=== PATIENT | male | born 1960 | race Asian ===

== ENCOUNTER 2019-02-26 10:39 | Emergency (ER) | payer SELFPAY ==
[~2019-02-26] VITALS: Ht 165.1 cm; Wt 65.8 kg
[2019-02-26 11:00] VITALS: Ht 165.1 cm; Wt 65.8 kg
[2019-02-26 11:31] LABS: CALCIUM 7.9 mg/dL (8.5-10.1); CARBON DIOXIDE 27.4 mmol/L (21-32); CHLORIDE SERUM 106 mmol/L (98-107); CREATININE SERUM 0.9 mg/dL (0.7-1.3); GFR1 > 60 mL/min; GLUCOSE SERUM 128 mg/dL (74-106); POTASSIUM SERUM 4.4 mmol/L (3.5-5.1); SODIUM SERUM 138 mmol/L (136-145)
[2019-02-26 11:37] LABS: ALBUMIN 2.6 g/dL (3.4-5.0); ALKALINE PHOSPHATASE 44 U/L (46-116); ALT/SGPT 35 U/L (16-63); AST/SGOT 19 U/L (15-37); BASOPHIL % 0.2 % (0-2); BILIRUBIN TOTAL 0.4 mg/dL (0.20-1.00); PLATELET COUNT 175 x10^3mcL (130-400); RED CELL DISTRIBUTION WIDTH 14.4 % (11.5-14.5); TOTAL PROTEIN, SERUM 6.1 g/dL (6.4-8.2)
[2019-02-26 12:42] LABS: microscopic required? NO
[2019-02-26 13:10] LABS: urine erythrocyte NEGATIVE (NEGATIVE)
[2019-02-26 13:29] LABS: AMPHETAMINE QUAL UR NONE DETECTED (See below)
[2019-02-26 14:13] VITALS: BP 137/86
== END 2019-02-26 14:13 | disposition home or self-care (01) ==
LOC: ED 10:39
PROVIDERS: Emergency Medicine
DX: R55 Syncope and collapse (principal); D72.829 Elevated white blood cell count, unspecified
CPT/HCPCS: J7030; Q0092